=== PATIENT | female | born 2000 | race Caucasian/White ===

== ENCOUNTER 2020-12-19 08:59 | Emergency (ER) | payer BC, OTHER ==
[~2020-12-19] VITALS: Ht 160 cm; Wt 61.2 kg
[2020-12-19 11:35] VITALS: BP 135/73
== END 2020-12-19 11:37 | disposition home or self-care (01) ==
LOC: M.ERS 08:59
DX: S00.81XA Abrasion of other part of head, initial encounter (principal); V89.2XXA Person injured in unspecified motor-vehicle accident, traffic, initial encounter; Y93.89 Activity, other specified; Y92.89 Other specified places as the place of occurrence of the external cause; Y99.8 Other external cause status